=== PATIENT | male | born 2000 | race Caucasian/White ===

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

== ENCOUNTER → 2020-05-16 16:26 | Outpatient (CLI) | payer OTHER, SELFPAY ==
[2019-02-03 08:08] VITALS: BMI 25.2
[2020-05-18 20:22] LABS: Sickle Hgb Solubility Negative (Negative)
== END ==
PROVIDERS: PCP Family Medicine; Referring Provider Family Medicine; Visit Provider Family Medicine
DX: Z00.00 Encounter for general adult medical examination without abnormal findings (principal)
CPT/HCPCS: 36415; 85660

== ENCOUNTER → 2020-09-27 | Outpatient (CLI) | payer OTHER, SELFPAY ==
[2019-02-03 08:08] VITALS: BMI 25.2
== END | disposition home or self-care (01) ==
PROVIDERS: PCP Family Medicine; Referring Provider Registered Nurse; Visit Provider Registered Nurse
DX: U07.1 COVID-19 (principal)
CPT/HCPCS: 87635; U0003

== ENCOUNTER → 2022-03-15 | Outpatient (CLI) | payer OTHER, SELFPAY ==
--- NOTE | 2022-03-15 06:37 | MRI_ITS ---
STUDY: MRI LEFT KNEE REASON FOR EXAM: Posterior left knee pain, hyperextension injury of the left knee 7 weeks ago. TECHNIQUE: Standardized fat and water weighted pulse sequences were obtained in all 3 orthogonal planes. COMPARISON: None. FINDINGS: Normal medial meniscus. Normal hyaline cartilage of the medial femorotibial compartment. There are bone contusions of the anterior aspect of the medial and lateral tibial plateau (T2 coronal images 18-25). Normal medial collateral ligamentous complex (MCL). Normal distal semimembranosus, gracilis and semitendinosus tendons. Normal lateral meniscus. Normal hyaline cartilage of the lateral femorotibial compartment. There is a bone contusion of the anterior aspect of the lateral femoral condyle (T2 coronal images 19-23). Normal proximal tibiofibular articulation. Normal lateral collateral (fibular) ligament. Normal popliteus tendon. Normal biceps femoris tendon. Normal anterior cruciate ligament (ACL). There is a partial tear of the proximal posterior cruciate ligament (T2 sagittal image 11). Normal congruent patellofemoral articulation. Normal hyaline cartilage of the patellofemoral compartment. Normal medial and lateral patellar retinaculum. Normal visualized quadriceps tendon. Normal patellar tendon. Normal Hoffa''s fat pad. There is a small joint effusion. There is a minimal popliteal cyst (T2 sagittal image 4). There is a small bone island in the posterior aspect of the proximal tibial diaphysis. MRI/Lower Ext Joint Only (Routine) IMPRESSION: Partial tear of the posterior cruciate ligament. Bone contusions of the anterior aspect of the medial and lateral tibial plateau and lateral femoral condyle. Small joint effusion. Electronically Signed: Cornelius Seay MD at 8:33 EDT ,
== END | disposition home or self-care (01) ==
LOC: MRI 06:32
PROVIDERS: PCP Family Medicine; Referring Provider Family Medicine; Visit Provider Family Medicine
DX: M25.462 Effusion, left knee (principal)
CPT/HCPCS: 73721